=== PATIENT | male | born 1960 | race Two or more races ===

== ENCOUNTER 2024-06-14 15:18 | Inpatient (IN) | payer OTHER ==
[~2024-06-14] VITALS: Ht 170.2 cm; Wt 78.8 kg
[2024-06-14 15:52] LABS: Urine Bacteria None Seen /hpf (None Seen)
[2024-06-14 15:57] LABS: Basophils # (auto) 0 10 ^3/uL (0-0.2); Basophils % (auto) 0.4 % (0.0-2.0); Eosinophils # (auto) 0.1 10 ^3/uL (0-0.8); Eosinophils % (auto) 1.2 % (0.0-7.0); Hematocrit 45.4 % (41.0-53.0); Hemoglobin 15.6 g/dL (13.5-17.5); Lymphocytes # (auto) 1.2 10 ^3/uL (0.4-5.4); Mean Corpuscular Hemoglobin 31.4 pg (28.0-32.0); Mean Corpuscular Hgb Conc. 34.4 g/dL (32.0-36.0); Mean Corpuscular Volume 91.3 fL (80.0-100.0); Monocytes # (auto) 0.2 10 ^3/uL (0-1.3); Monocytes % (auto) 4.1 % (0.0-12.0); Neutrophils % (auto) 72.3 % (37.0-80.0); Nucleated Red Blood Cells % 1.6 %; Platelet Count (auto) 217 10^3/uL (140-450); Red Blood Cells 4.98 10^6/uL (4.5-5.90); Red Cell Distribution Width 13.9 % (11.8-14.3); White Blood Cell 5.6 10^3/uL (4.4-10.8)
[2024-06-14 16:09] LABS: Alanine Aminotransferase 17 U/L (7-40); Albumin 4.7 g/dL (3.2-4.8); Alkaline Phosphatase 62 U/L (46-116); Anion Gap 7 (5-15); Aspartate Aminotransferase < 8 U/L (13-40); BUN/Creatinine Ratio 15.2 (10.0-20.0); Blood Urea Nitrogen 16 mg/dL (9-23); Calcium 9.9 mg/dL (8.7-10.4); Carbon Dioxide 24 mmol/L (20-31); Chloride 107 mmol/L (98-107); Glucose 225 mg/dL (74-106); Magnesium 1.8 mg/dL (1.6-2.6); Potassium 3.7 mmol/L (3.5-5.1); Sodium 138 mmol/L (136-145)
[2024-06-14 16:10] LABS: Bilirubin, Total 0.4 mg/dL (0.2-1.0)
[2024-06-14 16:18] LABS: INR 1.07 (0.9-1.15); Partial Thromboplastin Time 26.5 SEC (24.5-34.5); Prothrombin Time 11.3 sec (9.3-11.8)
[2024-06-14 16:38] LABS: Urine Blood 1+ /uL (Negative); Urine Clarity Clear (Clear); Urine Color Light-Yellow (Yellow); Urine Protein, UAD Negative (Negative); Urine Specific Gravity 1.021 (1.001-1.035); Urine Urobilinogen Normal (Negative); Urine WBC 1 /hpf (0 - 3)
[2024-06-14] MEDS: LORazepam 0.5 MG TAB PO ONE (17:20)
[2024-06-14] MEDS: ACETAMINOPHEN 500 MG TAB PO ONE (17:21)
[2024-06-14] MEDS ORDERED: DOCUSATE SOD 100 MG CAP PO PRN (21:45)
[2024-06-14] MEDS ORDERED: ONDANSETRON HCL 4 MG/2 ML VIAL IV PRN (21:45)
[2024-06-14] MEDS ORDERED: LORazepam 2MG/ML-1ML VIAL IV PRN (21:45)
[2024-06-14] MEDS ORDERED: DEXTROSE (50%) 50ML SYRG IV PRN (21:45)
[2024-06-14] MEDS: InsuLIN REG 1unit/0.01ml Soln (100units/ml) SC SCH (22:00)
[2024-06-14] MEDS: ACCU-CHEK COMFORT CURVE STRIP VI SCH (22:00)
[2024-06-14] MEDS: SODIUM CHLOR 0.9% PF (SALINE LOCK) 10ML VIAL/SYR IV SCH (22:00)
[2024-06-14] MEDS ORDERED: NITROGLYCERIN 0.4 MG SL TAB SL PRN (22:45)
[2024-06-14] MEDS ORDERED: MORPHINE SULFATE INJ 2 MG/ml SYRG IV PRN (22:45)
[2024-06-14] MEDS: ATORVASTATIN 20 MG TAB PO SCH (22:52)
[2024-06-15] VITALS (16 sets, daily range): BP systolic 121–146; BP diastolic 66–76; PULSE 46–67; RESP 12–22; TEMP 97.3–98.4; O2SAT 95–99
[2024-06-15 04:35] LABS: Basophils # (auto) 0 10 ^3/uL (0-0.2); Basophils % (auto) 0.6 % (0.0-2.0); Eosinophils # (auto) 0.2 10 ^3/uL (0-0.8); Eosinophils % (auto) 2.9 % (0.0-7.0); Hemoglobin 14.9 g/dL (13.5-17.5); Lymphocytes # (auto) 1.6 10 ^3/uL (0.4-5.4); Mean Corpuscular Hemoglobin 31.6 pg (28.0-32.0); Mean Corpuscular Hgb Conc. 34.6 g/dL (32.0-36.0); Mean Corpuscular Volume 91.1 fL (80.0-100.0); Monocytes # (auto) 0.4 10 ^3/uL (0-1.3); Neutrophils # (auto) 3.4 10 ^3/uL (1.6-8.6); Neutrophils % (auto) 61.5 % (37.0-80.0); Nucleated Red Blood Cells % 0.2 %; Platelet Count (auto) 205 10^3/uL (140-450); Red Blood Cells 4.71 10^6/uL (4.5-5.90); Red Cell Distribution Width 13.8 % (11.8-14.3); White Blood Cell 5.6 10^3/uL (4.4-10.8)
[2024-06-15 04:42] LABS: Alanine Aminotransferase 14 U/L (7-40); Alkaline Phosphatase 57 U/L (46-116); Anion Gap 5 (5-15); BUN/Creatinine Ratio 20.7 (10.0-20.0); Blood Urea Nitrogen 18 mg/dL (9-23); Calcium 9.4 mg/dL (8.7-10.4); Carbon Dioxide 27 mmol/L (20-31); Chloride 109 mmol/L (98-107); Potassium 3.8 mmol/L (3.5-5.1); Sodium 141 mmol/L (136-145)
[2024-06-15 04:43] LABS: Albumin 4.2 g/dL (3.2-4.8); Aspartate Aminotransferase < 8 U/L (13-40)
[2024-06-15 04:44] LABS: Bilirubin, Total 0.3 mg/dL (0.2-1.0); Total Protein 6.2 g/dL (5.7-8.2)
[2024-06-15 05:32] LABS: Glucose 108 mg/dL (74-106)
[2024-06-15] MEDS: InsuLIN REG 1unit/0.01ml Soln (100units/ml) SC SCH (07:00)
[2024-06-15 09:25] LABS: Magnesium 1.9 mg/dL (1.6-2.6)
[2024-06-15] MEDS: ASPirin 81 mg TAB PO SCH (09:26)
[2024-06-15 09:52] LABS: Amphetamine Screen, Urine Neg (NEGATIVE); Barbiturate Scree,Urine Neg (NEGATIVE); Benzodiazephine Screen, Urine Neg (NEGATIVE); Cocaine Screen, Urine Neg (NEGATIVE); Opiate Scree,Urine Neg (NEGATIVE)
[2024-06-15 09:53] LABS: Cannabinoid Screen, Urine Neg (NEGATIVE); Phencyclidine Screen, Urine Neg (NEGATIVE)
[2024-06-15] MEDS: diphenhdrAMINE HCL 50 MG/1 ML VL IV ONE (10:45)
[2024-06-15] MEDS: IODIXANOL 320MG/ML 100ML BTL IV ONE (10:52)
[2024-06-15] MEDS: fentaNYL CITRATE 100 MCG/2 ML VL ONE (11:18)
[2024-06-15] MEDS: VERAPAMIL 2.5MG/ML INJ 2ML VIAL IV ONE (11:18)
[2024-06-15] MEDS: MIDAZOLAM HCL 2MG/2ML 2ml VIAL (1mg/ml) ONE (11:19)
[2024-06-15] MEDS: LIDOCAINE 2%HCL (LOCAL ANESTH.) INJ 20ML MDV ONE (11:19)
[2024-06-15] MEDS: SODIUM CHL 0.9% 0 ML ONE (11:57)
[2024-06-15] MEDS: ANGIOMAX 250 MG VIAL IV ONE (11:57)
[2024-06-15] MEDS: HYDROcodone-ACET 5/325MG TAB PO PRN (14:36)
[2024-06-15] MEDS ORDERED: ACET-1881 PO (18:32)
[2024-06-15] MEDS ORDERED: IBUP-1456 PO (18:32)
[2024-06-15] MEDS ORDERED: METF-370 PO (18:32)
[2024-06-15] MEDS ORDERED: ATOR20TA50 PO (18:32)
[2024-06-15] MEDS ORDERED: GABA-1250 PO (18:32)
[2024-06-15] MEDS ORDERED: TRAZ-227 PO (18:32)
[2024-06-15] MEDS: ACETAMINOPHEN 325 MG TAB PO PRN (21:11)
[2024-06-16] VITALS (7 sets, daily range): BP systolic 95–149; BP diastolic 48–83; PULSE 54–63; RESP 11–20; TEMP 97.7–98.4; O2SAT 95–98
[2024-06-16 12:06] LABS: Basophils # (auto) 0 10 ^3/uL (0-0.2); Basophils % (auto) 0.3 % (0.0-2.0); Eosinophils # (auto) 0.1 10 ^3/uL (0-0.8); Eosinophils % (auto) 1.1 % (0.0-7.0); Hematocrit 46.4 % (41.0-53.0); Hemoglobin 16.1 g/dL (13.5-17.5); Lymphocytes % (auto) 18.9 % (10.0-50.0); Mean Corpuscular Hemoglobin 31.6 pg (28.0-32.0); Mean Corpuscular Hgb Conc. 34.7 g/dL (32.0-36.0); Mean Corpuscular Volume 91.1 fL (80.0-100.0); Monocytes # (auto) 0.3 10 ^3/uL (0-1.3); Monocytes % (auto) 6.3 % (0.0-12.0); Neutrophils # (auto) 3.9 10 ^3/uL (1.6-8.6); Neutrophils % (auto) 73.4 % (37.0-80.0); Nucleated Red Blood Cells % 0.1 %; Platelet Count (auto) 210 10^3/uL (140-450); Red Cell Distribution Width 13.4 % (11.8-14.3); White Blood Cell 5.2 10^3/uL (4.4-10.8)
[2024-06-16 12:16] LABS: Chloride 103 mmol/L (98-107); Potassium 3.4 mmol/L (3.5-5.1); Sodium 139 mmol/L (136-145)
[2024-06-16 12:17] LABS: Anion Gap 9 (5-15); Calcium 9.4 mg/dL (8.7-10.4); Carbon Dioxide 27 mmol/L (20-31)
[2024-06-16 12:22] LABS: BUN/Creatinine Ratio 14.9 (10.0-20.0); Blood Urea Nitrogen 15 mg/dL (9-23); Glucose 143 mg/dL (74-106)
[2024-06-16] MEDS: POTASSIUM EFFERVESENT TAB 25 MEQ PO ONE (15:45)
== END 2024-06-16 17:35 | disposition home or self-care (01) | DRG 192 ==
LOC: ER 15:18 → TELE 22:43 → TELE-WESTW 06-15 15:49
PROVIDERS: ADMIT Nurse Practitioner Family; ATTEND Nurse Practitioner Acute Care
PROC: B211YZZ Fluoroscopy of Multiple Coronary Arteries using Other Contrast (ICD-10-PCS; principal; 2024-06-15)
PROC: 4A023N7 Measurement of Cardiac Sampling and Pressure, Left Heart, Percutaneous Approach (ICD-10-PCS; 2024-06-15)
PROC: B34HZZZ Ultrasonography of Right Upper Extremity Arteries (ICD-10-PCS; 2024-06-15)
DX: R07.89 Other chest pain (principal); E11.65 Type 2 diabetes mellitus with hyperglycemia; E78.5 Hyperlipidemia, unspecified; R00.1 Bradycardia, unspecified; I10 Essential (primary) hypertension; F41.1 Generalized anxiety disorder
CPT/HCPCS: 36415; 71045; 80048; 80053; 80061; 80307; 81001; 82306; 82607; 82962; 83036; 83735; 83880; 84100; 84443; 84484; 85025; 85610; 85730; 93005; 93306; 93458; 99152; G0378; J1815; J2250; Q9967